=== PATIENT | male | born 1935 | race Caucasian/White ===

== ENCOUNTER 2018-03-12 10:59 | Emergency (ER) | payer MEDICARE, OTHER ==
[2018-03-12 12:11] LABS: ADD MAN DIFF? NO
[2018-03-12 12:22] LABS: BASO # 0.1 x10^3/uL (0.0-0.2); BASO % 1 % (0-3); EOS # 0.1 x10^3/uL (0.0-0.7); EOS % 1 % (0-3); HEMOGLOBIN 10.2 g/dL (13.0-17.5); LYMPH # 1.3 x10^3/uL (1.0-4.8); LYMPH % 17 % (24-48); MEAN CORPUSCULAR HEMOGLOBIN 26 pg (25-35); MEAN CORPUSCULAR HGB CONC 32 g/dL (31-37); MEAN CORPUSCULAR VOLUME 81 fL (79-100); MONO # 0.6 x10^3/uL (0.0-1.1); MONO % 8 % (0-9); NEUT # 5.8 x10^3uL (1.8-7.7); NEUT % 74 % (31-73); PLATELET COUNT 177 x10^3/uL (140-400); RED BLOOD COUNT 3.96 x10^6/uL (4.30-5.70); RED CELL DISTRIBUTION WIDTH 21.3 % (11.5-14.5); WHITE BLOOD COUNT 7.8 x10^3/uL (4.0-11.0)
[2018-03-12 12:23] LABS: ANION GAP 7 (6-14); BLOOD UREA NITROGEN 30 mg/dL (8-26); BUN/CREATININE RATIO 27 (6-20); CARBON DIOXIDE 32 mmol/L (21-32); CHLORIDE 102 mmol/L (98-107); CREATININE 1.1 mg/dL (0.7-1.3); GFR 64.4; GLUCOSE 100 mg/dL (70-99); POTASSIUM 4.1 mmol/L (3.5-5.1); SODIUM 141 mmol/L (136-145)
[2018-03-12 12:29] LABS: ALBUMIN 3.5 g/dL (3.4-5.0); ALBUMIN/GLOBULIN RATIO 0.8 (1.0-1.7); ALK PHOS 126 U/L (46-116); ALT (SGPT) 38 U/L (16-63); AST (SGOT) 26 U/L (15-37); LIPASE 152 U/L (73-393); TOTAL BILIRUBIN 0.5 mg/dL (0.2-1.0); TOTAL PROTEIN 8.1 g/dL (6.4-8.2)
[2018-03-12 12:30] LABS: INR 2.1 (0.8-1.1); PROTHROMBIN TIME PATIENT 23.2 SEC (11.7-14.0)
[2018-03-12 12:32] LABS: LACTIC ACID 0.9 mmol/L (0.4-2.0)
[2018-03-12 12:35] LABS: TROPONINI 0.028 ng/mL (0.000-0.055)
[2018-03-12 12:44] LABS: CREATINE KINASE 41 U/L (39-308)
[2018-03-12 12:44] LABS: NT-PRO BNP 990 pg/mL (0-449)
[2018-03-12 13:35] LABS: DIG 0.9 ng/mL (0.9-2.0)
[2018-03-12 13:39] LABS: ANISOCYTOSIS MOD; PLT ESTIMATE ADEQUATE (ADEQUATE)
== END 2018-03-12 14:15 | disposition home or self-care (01) ==
LOC: ER 10:59
DX: R42 Dizziness and giddiness (principal); R13.0 Aphagia; B37.49 Other urogenital candidiasis; I48.91 Unspecified atrial fibrillation; I11.0 Hypertensive heart disease with heart failure; I50.9 Heart failure, unspecified; K21.9 Gastro-esophageal reflux disease without esophagitis; J44.9 Chronic obstructive pulmonary disease, unspecified; E11.9 Type 2 diabetes mellitus without complications; Z86.2 Personal history of diseases of the blood and blood-forming organs and certain disorders involving the immune mechanism; Z86.73 Personal history of transient ischemic attack (TIA), and cerebral infarction without residual deficits; Z95.0 Presence of cardiac pacemaker; Z91.041 Radiographic dye allergy status
CPT/HCPCS: 36415; 70450; 71045; 80053; 80162; 82553; 83605; 83690; 83880; 84484; 85025; 85610; 87040; 93005; 99285-25

== ENCOUNTER 2018-11-05 10:01 | Emergency (ER) | payer MEDICARE, OTHER ==
[~2018-11-05] VITALS: Ht 177.8 cm; Wt 65.8 kg
[~2018-11-05 10:01] MED LIST: ALBU2.5V5 NEB; ALBU2.5V8 IH; ASPI-630 PO; ATOR20TA58 PO; ATOR40TA59 PO; BENZ100C PO; CLOP75TA PO; DIGO125T PO; DIGO250T PO; DIGO250T14 PO; DILT180C2 PO; DILT90TA PO; DOXA2TAB2 PO; EZET10TA18 PO; FAMO20TA5 PO; FERR325T14 PO; FERR325T72 PO; FLUT1DIS3 IH; FLUT1DIS5 IH; FURO-68 PO; FURO40TA4 PO; GLYC1TAB PO; LEVO500T59 PO; METO100T5 PO; METO10TA81 PO; METO25TA4 PO; NYST15CR2 TP; NYST60PO TP; POTA20TA12 PO; PRED-220 PO; PRED20TA PO; PRED50TA PO; WARF4TAB64 PO; WARF6TAB49 PO; WARF7.5T48 PO
[2018-11-05 10:32] VITALS: BP 180/84
[2018-11-05] MEDS ORDERED: TOBR5DRO6 OD (10:44)
[2018-11-05] MEDS ORDERED: GENT3.5O9 RIGHTEYE (10:44)
--- NOTE | 2018-11-05 10:45 | PHYS DOC ---
Past Medical History Past Medical History: A-Fib, Anemia, CHF, COPD, Diabetes-Type II, GERD, Hypertension, Hypotension, TIA, Other Additional Past Medical Histor: AORTIC STENOSIS, APHASIA, HEART FAILURE Past Surgical History: Pacemaker, Other Additional Past Surgical Histo: STENTS, NONRHEUMATIC AORTIC VALVE STENOSIS Alcohol Use: None Drug Use: None Adult General Chief Complaint Chief Complaint: EYE PROBLEMS [facility] HPI Patient is a 83 year old male presented to ER today for evaluation of right eye redness, right eye lid swelling for 3 days. He denies any fever. he denies any blurry visio, no trauma. Review of Systems Review of Systems Constitutional: Denies fever or chills [] Eyes: Denies change in visual acuity POSITIVE FOR RIGHT EYE redness, no eye pain [] HENT: Denies nasal congestion or sore throat [] Respiratory: Denies cough or shortness of breath [] Cardiovascular: No additional information not addressed in HPI [] GI: Denies abdominal pain, nausea, vomiting, bloody stools or diarrhea [] : Denies dysuria or hematuria [] Musculoskeletal: Denies back pain or joint pain [] Integument: Denies rash or skin lesions [] Neurologic: Denies headache, focal weakness or sensory changes [] Endocrine: Denies polyuria or polydipsia [] All other systems were reviewed and found to be within normal limits, except as documented in this note. Allergies Allergies Allergies Coded Allergies Type Severity Reaction Last Updated Verified I S O L A T I O N *CONTACT* Allergy Unknown 03/03/18 Yes No Known Medication Allergies Allergy Unknown 03/03/18 Yes Physical Exam Physical Exam Constitutional: Well developed, well nourished, no acute distress, non-toxic appearance. [] HENT: Normocephalic, atraumatic, bilateral external ears normal, oropharynx moist, no oral exudates, nose normal. [] Eyes: PERRLA, EOMI, right conjunctival injected, right upper eyelid with a sty, no discharge, right lower eyelid swelling and erythema. Neck: Normal range of motion, no tenderness, supple, no stridor. [] Cardiovascular:Heart rate regular rhythm, no murmur [] Lungs & Thorax: Bilateral breath sounds clear to auscultation [] Abdomen: Bowel sounds normal, soft, no tenderness, no masses, no pulsatile masses. [] Skin: Warm, dry, no erythema, no rash. [] Back: No tenderness, no CVA tenderness. [] Extremities: No tenderness, no cyanosis, no clubbing, ROM intact, no edema. [] Neurologic: Alert and oriented X 3, normal motor function, normal sensory function, no focal deficits noted. [] Psychologic: Affect normal, judgement normal, mood normal. [] Current Patient Data Vital Signs Vital Signs Date Time Temp Pulse Resp B/P (MAP) Pulse Ox O2 Delivery O2 Flow Rate FiO2 11/05/18 10:32 97.9 75 16 180/84 (116) 94 Room Air 97.9 EKG EKG [] Radiology/Procedures Radiology/Procedures [] Course & Med Decision Making Course & Med Decision Making Pertinent Labs and Imaging studies reviewed. (See chart for details) [] Dragon Disclaimer Dragon Disclaimer This electronic medical record was generated, in whole or in part, using a voice recognition dictation system. Departure Departure Impression: Primary Impression: Conjunctivitis Additional Impression: Hordeolum externum of right upper eyelid Disposition: HOME, SELF-CARE Condition: STABLE Referrals: HAZEL LOYOLA MD (PCP) follow up with your doctor in two days for reevaluation Patient Instructions: Conjunctivitis (Viral and Bacterial), Sty Scripts Tobramycin (TOBRAMYCIN) 5 Ml Drops 2 DROP OD Q2HR W/A for 5 Days, #10 ML Prov: ERICA WOODS DO 11/05/18 Gentamicin Sulfate (GENTAMICIN SULFATE 0.3% OPHTH OINT) 3.5 Gm Oint...g. 1 MICKY RIGHTEYE QID for 5 Days, #1 TUBE Prov: ERICA WOODS DO 11/05/18 Problem Qualifiers ERICA WOODS DO Nov 05, 2018 10:45
== END 2018-11-05 10:56 | disposition home or self-care (01) ==
LOC: ER 10:01
DX: H00.011 Hordeolum externum right upper eyelid (principal); H10.9 Unspecified conjunctivitis; I48.91 Unspecified atrial fibrillation; I11.0 Hypertensive heart disease with heart failure; I50.9 Heart failure, unspecified; E11.9 Type 2 diabetes mellitus without complications; J44.9 Chronic obstructive pulmonary disease, unspecified; K21.9 Gastro-esophageal reflux disease without esophagitis; Z95.5 Presence of coronary angioplasty implant and graft; Z95.0 Presence of cardiac pacemaker; Z91.041 Radiographic dye allergy status
CPT/HCPCS: 99283; 99284

== ENCOUNTER 2021-05-05 12:04 | Emergency (ER) | payer MEDICARE, OTHER ==
[~2021-05-05] VITALS: Ht 170.2 cm; Wt 79.0 kg
[~2021-05-05 12:04] MED LIST changes: -DIGO125T PO; +DIGO125T3 PO; -DIGO250T PO; +DIGO250T3 PO; -EZET10TA18 PO; +EZET10TA20 PO; +GENT3.5O9 RIGHTEYE; +TOBR5DRO6 OD
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
[2021-05-05] MEDS ORDERED: DIPH,PERTUSS(ACELL),TET VAC/PF 0.5 ML SYRINGE. VAX IM ONE (13:15)
[2021-05-05] MEDS ORDERED: CEPH500C PO (13:15)
[2021-05-05 13:33] VITALS: BP 154/67
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
== END 2021-05-05 14:20 | disposition home or self-care (01) ==
LOC: ER 12:04
DX: S61.232A Puncture wound without foreign body of right middle finger without damage to nail, initial encounter (principal); I48.91 Unspecified atrial fibrillation; I11.0 Hypertensive heart disease with heart failure; I50.9 Heart failure, unspecified; J44.9 Chronic obstructive pulmonary disease, unspecified; E11.9 Type 2 diabetes mellitus without complications; K21.9 Gastro-esophageal reflux disease without esophagitis; Z86.2 Personal history of diseases of the blood and blood-forming organs and certain disorders involving the immune mechanism; Z86.73 Personal history of transient ischemic attack (TIA), and cerebral infarction without residual deficits; Z95.0 Presence of cardiac pacemaker; Z88.8 Allergy status to other drugs, medicaments and biological substances; W26.8XXA Contact with other sharp object(s), not elsewhere classified, initial encounter; Y93.89 Activity, other specified; Y92.89 Other specified places as the place of occurrence of the external cause; Y99.8 Other external cause status
CPT/HCPCS: 12001; 73130; 90471; 90715; 99283